=== PATIENT | female | born 1990 | race Caucasian/White ===

== ENCOUNTER 2018-08-07 07:08 | Day surgery (SDC) | payer SELFPAY ==
[2018-08-03 15:52] LABS: Hematocrit 40.3 % (37-47); Hemoglobin 13.4 g/dl (12.0-15.0); Mean Corp Hgb Conc 33.3 g/gl (32-36); Mean Corpuscular Hgb 26.9 pg (27.0-32.0); Mean Corpuscular Volume 80.8 fL (81-99); Mean Platelet Vol. 9.8 fl (6.2-12.0); Platelet Count 335 K/mm3 (150-450); RBC Distribution Width CV 13.5 % (11.6-14.6); RBC Distribution Width SD 38.8 fl (35.1-43.9); Red Blood Count 4.99 M/mm3 (4.2-5.4); White Blood Count 6.8 K/mm3 (4.4-11.0)
[2018-08-03 15:54] LABS: Scan Indicated on CBC? Y/N NO
[2018-08-03 16:48] LABS: hCG Titer Quant., Serum < 1 mIU/mL (<9 non-preg)
--- NOTE | 2018-08-06 14:35 | PCM.HP.BLA ---
History and Physical Date of Admission: 08/07/18 Surgical History and Physical Leny Martin, a 27 year old female 2 0 2 0 2, presents for D and C and hysteroscopy on August 07, 2018 at 8:30. -- EM Polyp; Irregular Menses -- Leny is referred per Dr Grant for a Polyp in the uterus. Pt relates she is a 27yo G 4, P 2 AB 2. She had 2 healthy full term pregnancies followed by 2 SAB's in the past 2yrs. Menses have always been irregular, but have been more irregular recently. She had some labwork and a pelvic U/S done at [facility] last mo, and sts she was advised she has a uterine polyp that could be causing her issues with irregular menses, SAB's, and difficulty conceiving. Polyp in uterus which began found on U/S this mo. Leny claims it started suddenly and has been present constantly. It occurs all the time. It is located in the Uterus. Associated signs and symptoms are 2 SAB's in the past 2yrs. Additional comments are: u/s just after last menses ended showed possible 1 cm EM polyp; had 2 MC's--one at 9 weeks and one blighted ovum; 2 normal pregnancies; trying for for 1.5 year.; Additional comments are: Polyp persists on u/s in our office. MEDICATIONS HISTORY: ALLERGIES: No Known Allergies Infections - Chicken pox childhood Illnesses - no serious past illnesses Accidents - None Hospitalizations - Childbirth and see surgery Review of Systems: GENERAL - Denies fever, or chills SKIN - Denies skin changes EYES - Denies visual changes EARS - Denies difficulty hearing NOSE - Denies nasal congestion or bleeding MOUTH - Denies sore throat or difficulty swallowing NECK - Denies pain or swelling RESPIRATORY - Denies shortness of breath or wheezing CARDIOVASCULAR - Denies palpitations or chest pain GASTROINTESTINAL - Denies nausea, vomiting, diarrhea, constipation GENITOURINARY - Denies dysuria, frequency of urination, incontinence of urine MUSCULOSKELETAL - Denies joint or muscle pain NEUROLOGICAL - Denies localized numbness or weakness PSYCHIATRIC - Denies depression or anxiety ENDOCRINE - Denies heat or cold intolerance, weight loss or gain HEMATO-IMMUNOLOGIC - Denies excesive bleeding with cuts SOCIAL HISTORY: Alcohol Use - denies drinking Smoking - denies smoking Diet - balanced Diet Lifestyle - moderate stress lifestyle and Exercise - minimal Seat Belt Use - always Employer - Unemployed Job Description - Housewife Illicit Drug Use - denies use of street drugs Sexual Activity - Spouse-Sig Other Name - Yogesh Spouse-Sig Other Occupation - [employer] Children Name(s) - Kimberly(11), Tim(14) Control - None-attempting pregancy FAMILY HISTORY: co MENSTRUAL HISTORY: LMP Known?- YesAmount/Duration - 3 days, Regularity - Irregular, LMP - 07/19/18 PAST PREGNANCIES: Total Pregnancies - 4; Full Term Pregnancies - 2; Premature - 0; Abortions, Induced - 0; Abortions, Spontaneous - 2; Ectopics - 0; Multiple Births - 0; Living Children - 2 SURGICAL HISTORY: 1. D and C, 2017 ; Dr. Bridges 2. cholecystectomy, 2015 PHYSICAL EXAM BP- 118/62 Sitting, Right arm, regular cuff Weight- 162.23086 lbs Height- 64 inch BMI:27.87 CONSTITUTIONAL - NAD, well nourished, and well developed SKIN - No rash, lesions, or ulcers HEENT - Normocephalic, PERRLA, EOMI NECK - No nodes, no nuchal rigidity and thyroid normal size and texture LYMPH NODES - Palpation of lymph nodes in neck and groins within normal limits LUNGS - CTA x2 without wheezes, crackles or rales CARDIAC - Regular rate and rhythm without rubs, murmurs, or gallops ABDOMEN - Without hepatosplenomegaly, distention, masses, rebound, or guarding; normal bowel sounds; no hernias EXTREMITIES - No edema or calf tenderness NEUROLOGICAL - Cranial nerves II-XII grossly intact PSYCHIATRIC - A and O to time, place, person, mood and affect ASSESSMENT/PLAN: 1. Mucous Polyp Of Cervix Discussed options for treatment and will proceed with D and C and H/S. Disucssed RBAs and all questions answered.
[2018-08-07 07:26] VITALS: BP 131/77; PULSE 70; RESP 16; TEMP 36.6; O2SAT 100; BMI 28.1
[2018-08-07 07:48] LABS: Internal QC Validated? YES +Cl - CLEAR BKGD; Pregnancy, Urine Negative Negative
--- NOTE | 2018-08-07 08:35 | EMB_PTH ---
PATIENT: SHAYLA GORDON [place] [facility] [place][id number] AGE/SX: 27/F ROOM: RE08/07/[address]: Dr. Saqib Monge MD : 1990 BED: DIS: 08/07/2018 SPEC #: [id number] RECD: 08/07/18 09:39 STATUS: FRANCISCO JAVIER BRYAN #: [id number] TRICIA: 08/07/18 08:[address]: Saqib Monge DEPT: SURGICAL PATHOLOGY RECD BY: Lissette Biggs ENTERED: 08/07/18 11:11 SP TYPE: ENDOM BX/C OTHR DR: Dr. Saqib Grant MD Tissues: Endometrium, NOS Procedures: Surgery Specimen Level IV HEADER OPERATION: Hysteroscopy, dilation and curettage PRE-OP DIAGNOSIS: Mucous polyp of cervix TISSUE SUBMITTED: Endometrial curettings MICROSCOPIC DIAGNOSIS Endometrium, curettings: Transition to secretory endometrium with focal glandular and stromal breakdown. AM:allie 08/08/18 MICROSCOPIC DESCRIPTION Slides are reviewed. GROSS DESCRIPTION Received in fixative is one container labeled with the patient's name and designated endometrial curettings. The specimen consists of multiple fragments of hemorrhagic soft tissue that in aggregate measure 5 x 3 x 0.3 cm. The entire specimen is submitted in two cassettes. / SJ:allie 08/07/18 TC:5 CPT: 78363
--- NOTE | 2018-08-07 08:41 | PCM.OPRPT ---
Report of Operation Date of Procedure: 08/07/18 Pre-Operative Diagnosis: Irregular Menses and Endometrial Polyp Post-Operative Diagnosis: Irregular Menses and Endometrial Polyp Surgery/Procedure Performed:: Hysteroscopy and Dilation and Curettage Description of Surgical Findings:: 8 cm endometrial cavity with 1 cm endometrial polyp present. Type of Anesthesia:: MAC/Supplemental Anesthesiologist: Govind Kumar Specimen's removed: Endometrial curettings including polyp Estimated Blood Loss (mL): Minimal Fluids Replaced: Crystalloid Description of Procedure: Surgeon: Saqib Monge MD, FACOG Indications: This is a 27 year old patient who has the above diagnosis. The patient has been counseled regarding the risk and indications of this procedure including the possibility of bleeding, infection, and injury to surrounding structures such as bowel bladder. All questions were answered and we consider the patient well-informed. Procedure: The patient was taken to the operating room where after IV sedation was given, she was placed in the dorsolithotomy position and prepped and draped in the usual sterile fashion. The bladder was drained of approximately 50 cc of clear yellow urine with a catheter. Anterior cervix was grasped with the tenaculum and dilated to about 4-5 mm. A 3 mm hysteroscope was placed in the uterus of the above findings were noted. Cervix was dilated to about 7-8 mm and uterus was gently curetted removing all contents. Hysteroscope was reinserted and all material was noted to be removed. In the course of the procedure approximately 100 cc of glycine distending media was used and virtually all of this was recovered. Patient tolerated procedure well was taken to recovery room in satisfactory condition sponge instrument and needle counts were all reportedly correct. Estimated blood loss for the case was minimal. Specimens to pathology was endometrial curettings Complications: None Grafts/Implants Used: None - Complications None - Admit VTE Documentation VTE Present on Admission: Yes VTE Mechan Device Prophylaxis: SCD's VTE Pharm Prophylaxis ordered?: No Reason prophylaxis not ordered:: Treatment Not Indicated
--- NOTE | 2018-08-07 08:48 | DCINST_ITS ---
Discharge Diet: No Restrictions Discharge Activity: Return to Normal Activity, May Shower, May Take a Tub Bath May resume sexual activity in: 2 weeks Call your doctor if you observe: Fever of 101 or Higher, Inability to urinate, Inability to have a bowel movement, Using more than one pad per hour Allergies/Adverse Reactions: Allergies No Known Allergies Allergy (Verified 08/02/18 10:27) Medications to take at Discharge NK 08/02/18 Primary Care Physician: Saqib Grant [Primary Care Provider] - Test Results: Test results from this visit will be discussed in further detail at your follow- up appointment, if applicable. Please Follow Up With: Saqib Monge MD When: 2-3 weeks
[2018-08-07 09:24] VITALS: BP 126/82; BP 131/77; PULSE 75; RESP 16; TEMP 36.4; O2SAT 97
[2018-08-07 09:30] VITALS: BP 121/72; BP 131/77; PULSE 72; RESP 16; O2SAT 99
[2018-08-07 09:35] VITALS: BP 110/72; BP 131/77; PULSE 69; RESP 16; O2SAT 98
[2018-08-07 09:36] VITALS: BP 122/77; BP 131/77; PULSE 68; RESP 16; TEMP 36.6; O2SAT 97
[2018-08-07 11:09] VITALS: BP 105/59; BP 131/77; PULSE 67; RESP 18; TEMP 37.1; O2SAT 100
--- OUTSIDE RECORDS SUMMARY | 2018-11-08 17:04 | XMS RPT_ITS ---
:1990 Author Organization OHIP Care Team Providers Name Role Phone MUNA DEANDRE Admitting Unavailable DEANDRE GRANT Attending Unavailable DEANDRE GRANT Primary Care Unavailable DEANDRE GRANT Consulting Unavailable PROVIDER, UNKNOWN Consulting Unavailable PROVIDER, UNKNOWN Consulting Unavailable PROVIDER, UNKNOWN Consulting Unavailable Deandre Monge Attending Unavailable Deandre Monge Referring Unavailable VaccDeandre blanco Primary Care Unavailable PROBLEMS PROBLEMS No Problem Records FoundPROCEDURES PROCEDURES No Procedure Records FoundRESULTS RESULTS OPERATIVE REPORT Observed: 08/07/2018 Status: F Source: HOME 9:15 AM [facility] REPOSITORY [facility] Medical Records Department [address] [place] [address] Operative Report 08/07/18 0841 MR#: [id number] Acct: [id number] Name: LENY GORDON Rep #: [id number] : 1990 27 From: Deandre Monge MD PCP: Deandre Grant MD Status: REG [facility] Y Location: [place] [address] Report of Operation Date of Procedure: 08/07/18 Pre-Operative Diagnosis: Irregular Menses and Endometrial Polyp Post-Operative Diagnosis: Irregular Menses and Endometrial Polyp Surgery/Procedure Performed:: Hysteroscopy and Dilation and Curettage Description of Surgical Findings:: 8 cm endometrial cavity with 1 cm endometrial polyp present. Type of Anesthesia:: MAC/Supplemental Anesthesiologist: Govind Kumar Specimen's removed: Endometrial curettings including polyp Estimated Blood Loss (mL): Minimal Fluids Replaced: Crystalloid Description of Procedure: Surgeon: Deandre Monge MD, FACOG Indications: This is a 27 year old patient who has the above diagnosis. The patient has been counseled regarding the risk and indications of this procedure including the possibility of bleeding, infection, and injury to surrounding structures such as bowel bladder. All questions were answered and we consider the patient well-informed. Procedure: The patient was taken to the operating room where after IV sedation was given, she was placed in the dorsolithotomy position and prepped and draped in the usual sterile fashion. The bladder was drained of approximately 50 cc of clear yellow urine with a catheter. Anterior cervix was grasped with the tenaculum and dilated to about 4-5 mm. A 3 mm hysteroscope was placed in the uterus of the above findings were noted. Cervix was dilated to about 7-8 mm and uterus was gently curetted removing all contents. Hysteroscope was reinserted and all material was noted to be removed. In the course of the procedure approximately 100 cc of glycine distending media was used and virtually all of this was recovered. Patient tolerated procedure well was taken to recovery room in satisfactory condition sponge instrument and needle counts were all reportedly correct. Estimated blood loss for the case was minimal. Specimens to pathology was endometrial curettings Complications: None Grafts/Implants Used: None - Complications None - Admit VTE Documentation VTE Present on Admission: Yes VTE Mechan Device Prophylaxis: SCD's VTE Pharm Prophylaxis ordered?: No Reason prophylaxis not ordered:: Treatment Not Indicated 08/07/18 0915 <Electronically signed by Deandre Monge MD> Date Deandre Monge MD CC: Deandre Grant MD; Deandre Monge MD Signed DISCHARGE INSTRUCTION Observed: 08/07/2018 Status: F Source: HOME 8:48 AM [facility] REPOSITORY [facility] Medical Records Department [address] [place] [address] Instructions for Home/Discharge Instructions 08/07/18 0846 MR#: [id number] Acct: [id number] Name: LENY GORDON Rep #: [id number] : 1990 27 From: Deandre Monge MD PCP: Deandre Grant MD Status: REG [facility] Discharge Diet: No Restrictions Discharge Activity: Return to Normal Activity, May Shower, May Take a Tub Bath May resume sexual activity in: 2 weeks Call your doctor if you observe: Fever of 101 or Higher, Inability to urinate, Inability to have a bowel movement, Using more than one pad per hour Allergies/Adverse Reactions: Allergies No Known Allergies Allergy (Verified 08/02/18 10:27) Medications to take at Discharge NK 08/02/18 Primary Care Physician: Deandre Grant [Primary Care Provider] - Test Results: Test results from this visit will be discussed in further detail at your follow-up appointment, if applicable. Please Follow Up With: Deandre Monge MD When: 2-3 weeks 08/07/18 0848 <Electronically signed by Deandre Monge MD> Date Deandre Monge MD CC: Deandre Grant MD ENDOMETRIAL BX/CURETTINGS Observed: 08/07/2018 Status: F Source: RAKEL 8:35 AM [facility] REPOSITORY Patient: LENY GORDON : 1990 (/) Acct Num: [id number] Phys: Deandre Monge MD Unit Num: [id number] Loc: [facility] Specimen: [id number] Received: 08/07/1839 Spec Type: ENDOM BX/C TISSUES 1 TISSUES: Endometrium, NOS GROSS DESCRIPTION Received in fixative is one container labeled with the patient's name and designated endometrial curettings. The specimen consists of multiple fragments of hemorrhagic soft tissue that in aggregate measure 5 x 3 x 0.3 cm. The entire specimen is submitted in two cassettes. / SJ:allie 08/07/18 TC:5 CPT: 79507 HEADER OPERATION: Hysteroscopy, dilation and curettage PRE-OP DIAGNOSIS: Mucous polyp of cervix TISSUE SUBMITTED: Endometrial curettings MICROSCOPIC DESCRIPTION Slides are reviewed. MICROSCOPIC DIAGNOSIS Endometrium, curettings: Transition to secretory endometrium with focal glandular and stromal breakdown. AM:allie 08/08/18 Signed Raheem Avalos, DO 08/08/18 <signature on file> Performed By: #### PEMB #### [facility] [address] [place], [address] ,URINE Collected: 08/07/2018 Status: F Source: HOME 7:20 AM [facility] REPOSITORY TYPE CODE TESTS RESULT OUT OF REFERENCE UNITS RANGE LAB L400.8000 Negative Normal HCGUQUAL Negative Result Comment: Very dilute urine specimens, as indicated by a low specific gravity, may not contain car sales representative levels of hCG. If is still suspected, a first morning urine specimen should be collected 48 hours later and tested. Performed By: #### L400.7600 #### [facility] [address] [place], [address] HISTORY AND PHYSICAL Observed: 08/06/2018 Status: F Source: HOME EXAM 2:38 PM [facility] REPOSITORY [facility] Medical Records Department [address] [facility] [address] History and Physical 08/06/18 1435 MR#: [id number] Acct: [id number] Name: LENY GORDON Rep #: [id number] : 1990 27 From: Deandre Monge MD PCP: Deandre Grant MD Status: PRE [facility] Y Location: [facility] History and Physical Date of Admission: 08/07/18 Surgical History and Physical Leny Gordon, a 27 year old female 2 0 2 0 2, presents for D and C and hysteroscopy on August 07, 2018 at 8:30. -- EM Polyp; Irregular Menses -- Leny is referred per Dr Grant for a Polyp in the uterus. Pt relates she is a 27yo G 4, P 2 AB 2. She had 2 healthy full term pregnancies followed by 2 SAB's in the past 2yrs. Menses have always been irregular, but have been more irregular recently. She had some labwork and a pelvic U/S done at [facility] last mo, and sts she was advised she has a uterine polyp that could be causing her issues with irregular menses, SAB's, and difficulty conceiving. Polyp in uterus which began found on U/S this mo. Lney claims it started suddenly and has been present constantly. It occurs all the time. It is located in the Uterus. Associated signs and symptoms are 2 SAB's in the past 2yrs. Additional comments are: u/s just after last menses ended showed possible 1 cm EM polyp; had 2 MC's--one at 9 weeks and one blighted ovum; 2 normal pregnancies; trying for for 1.5 year.; Additional comments are: Polyp persists on u/s in our office. MEDICATIONS HISTORY: ALLERGIES: No Known Allergies Infections - Chicken pox childhood Illnesses - no serious past illnesses Accidents - None Hospitalizations - Childbirth and see surgery Review of Systems: GENERAL - Denies fever, or chills SKIN - Denies skin changes EYES - Denies visual changes EARS - Denies difficulty hearing NOSE - Denies nasal congestion or bleeding MOUTH - Denies sore throat or difficulty swallowing NECK - Denies pain or swelling RESPIRATORY - Denies shortness of breath or wheezing CARDIOVASCULAR - Denies palpitations or chest pain GASTROINTESTINAL - Denies nausea, vomiting, diarrhea, constipation GENITOURINARY - Denies dysuria, frequency of urination, incontinence of urine MUSCULOSKELETAL - Denies joint or muscle pain NEUROLOGICAL - Denies localized numbness or weakness PSYCHIATRIC - Denies depression or anxiety ENDOCRINE - Denies heat or cold intolerance, weight loss or gain HEMATO-IMMUNOLOGIC - Denies excesive bleeding with cuts SOCIAL HISTORY: Alcohol Use - denies drinking Smoking - denies smoking Diet - balanced Diet Lifestyle - moderate stress lifestyle and Exercise - minimal Seat Belt Use - always Employer - Unemployed Job Description - Housewife Illicit Drug Use - denies use of street drugs Sexual Activity - Spouse-Sig Other Name - Yogesh Spouse-Sig Other Occupation - [employer] Children Name(s) - Kimberly(11), Tim(14) Control - None-attempting pregancy FAMILY HISTORY: nc MENSTRUAL HISTORY: LMP Known?- YesAmount/Duration - 3 days, Regularity - Irregular, LMP - 07/19/18 PAST PREGNANCIES: Total Pregnancies - 4; Full Term Pregnancies - 2; Premature - 0; Abortions, Induced - 0; Abortions, Spontaneous - 2; Ectopics - 0; Multiple Births - 0; Living Children - 2 SURGICAL HISTORY: 1. D and C, 2017 ; Dr. Bridges 2. cholecystectomy, 2016 PHYSICAL EXAM BP- 118/62 Sitting, Right arm, regular cuff Weight- 162.91025 lbs Height- 64 inch BMI:27.87 CONSTITUTIONAL - NAD, well nourished, and well developed SKIN - No rash, lesions, or ulcers HEENT - Normocephalic, PERRLA, EOMI NECK - No nodes, no nuchal rigidity and thyroid normal size and texture LYMPH NODES - Palpation of lymph nodes in neck and groins within normal limits LUNGS - CTA x2 without wheezes, crackles or rales CARDIAC - Regular rate and rhythm without rubs, murmurs, or gallops ABDOMEN - Without hepatosplenomegaly, distention, masses, rebound, or guarding; normal bowel sounds; no hernias EXTREMITIES - No edema or calf tenderness NEUROLOGICAL - Cranial nerves II-XII grossly intact PSYCHIATRIC - A and O to time, place, person, mood and affect ASSESSMENT/PLAN: 1. Mucous Polyp Of Cervix Discussed options for treatment and will proceed with D and C and H/S. Disucssed RBAs and all questions answered. 08/06/18 1438 <Electronically signed by Deandre Monge MD> Date Deandre Monge MD Cosigner Signature: Date (if applicable) CC: Deandre Grant MD; Deandre Monge MD Signed CBC-COMPLETE BLOOD CNT Collected: 08/03/2018 Status: F Source: RAKEL NO DIFF 1:15 PM [facility] REPOSITORY TYPE CODE TESTS RESULT OUT OF RANGE REFERENCE UNITS LAB L100.1000 4.4-11.0 K/mm3 Normal WBC 6.8 LAB L100.1200 4.2-5.4 M/mm3 Normal RBC 4.99 LAB L100.1300 12.0-15.0 g/dl Normal HGB 13.4 LAB L100.1400 37-47 % Normal HCT 40.3 LAB L100.1500 81-99 fL Low MCV 80.8 LAB L100.1600 27.0-32.0 pg Low MCH 26.9 LAB L100.1700 32-36 g/gl Normal MCHC 33.3 LAB L100.1810 11.6-14.6 % Normal RDW CV 13.5 LAB L100.1820 35.1-43.9 fl Normal RDW SD 38.8 LAB L100.1900 150-450 K/mm3 Normal PLT 335 LAB L100.2000 6.2-12.0 fl Normal MPV 9.8 Performed By: #### L100.0500 #### [facility] [address] [place], [address] HCG TITER QUANT., Collected: 08/03/2018 Status: F Source: HOME SERUM 1:15 PM [facility] REPOSITORY TYPE CODE TESTS RESULT OUT OF RANGE REFERENCE UNITS LAB L700.8000 <9 non-preg mIU/mL Normal HCG < 1 QUANT. Performed By: #### L700.8000 #### [facility] [address] [place], [address] TYPE AND SCREEN Collected: 08/03/2018 Status: F Source: HOME 1:15 PM [facility] REPOSITORY Order Comment: Surgery Date: 08/07/18 Hx of Preganancy in last 3 Months No Ever experience any problems with transfusion(s)? N Hx of Transfusion in last 3 Months N Reason for Type AND Screen/Red Cells: SURGERY SURGICAL PROCEDURE: 92122 TYPE CODE TESTS RESULT OUT OF RANGE REFERENCE UNITS LAB B10.0800 O Normal BLOOD TYPE GEL NEGATIVE LAB B100.4000 Normal Antibody NEGATIVE Screen Performed By: #### B101.7475 #### [facility] [address] [facility] [place], [place], [address] US PELVIC Observed: 06/22/2018 Status: F Source: BLAISE YIN 4:[address] [address] Patient: LENY GORDON Phone#: : 1990 Age: 27 Gender: F Pt. Type: Out Account: [id number] Location: 052 Ordering: DEANDRE GRANT Exam Date: 06/22/2018/15:36 Family Phys: Charge Code: [id number] Physician: [place] Order #: [id number] DLP Dose#: PROCEDURE: PELVIC ULTRASOUND, TRANSABDOMINAL ENDOVAGINAL COMPARISON: None. INDICATIONS: Irregular periods TECHNIQUE: Pelvic ultrasound using transabdominal and endovaginal technique. FINDINGS: UTERUS: Size is 9.0 x 5.2 x 6.0 cm with unremarkable appearance. Endometrial thickness is 8 mm. There is a small cyst in the endometrium measuring 0.2 cm with surrounding echogenic material 1.0 x 0.6 x 0.6 cm, this appearance is highly suggestive of a endometrial polyp. Focal echogenicity within the myometrium without shadowing. May represent a small calcification. ADNEXAE: Normal bilateral appearance with no significant masses. Right ovary is 3.6 x 2.7 x 2.4 cm. Left ovary is 3.7 x 2.1 x 2.1 cm. there are follicles in both ovaries. CUL-DE-SAC: Normal. No fluid or mass. OTHER: Negative. CONCLUSION: 1. Probable endometrial polyp, though the differential also includes focal endometrial hyperplasia or polypoid adenomyoma. Consider correlation with transvaginal sonogram. Dictated by: Mei Emmanuel MD on 06/22/2018 at 17:13 Approved by: Mei Emmanuel MD on 06/22/2018 at 17:13 US PELVIC ENDO Observed: 06/22/2018 Status: F Source: BLAISEABEBA YIN VAGINAL 4:07 PM [place] [address] Patient: LENY GORDON Phone#: : 1990 Age: 27 Gender: F Pt. Type: Out Account: [id number] Location: 052 Ordering: DEANDRE GRANT Exam Date: 06/22/2018/15:36 Family Phys: Charge Code: [id number] Physician: [place] Order #: [id number] DLP Dose#: PROCEDURE: PELVIC ULTRASOUND, TRANSABDOMINAL ENDOVAGINAL COMPARISON: None. INDICATIONS: Irregular periods TECHNIQUE: Pelvic ultrasound using transabdominal and endovaginal technique. FINDINGS: UTERUS: Size is 9.0 x 5.2 x 6.0 cm with unremarkable appearance. Endometrial thickness is 8 mm. There is a small cyst in the endometrium measuring 0.2 cm with surrounding echogenic material 1.0 x 0.6 x 0.6 cm, this appearance is highly suggestive of a endometrial polyp. Focal echogenicity within the myometrium without shadowing. May represent a small calcification. ADNEXAE: Normal bilateral appearance with no significant masses. Right ovary is 3.6 x 2.7 x 2.4 cm. Left ovary is 3.7 x 2.1 x 2.1 cm. there are follicles in both ovaries. CUL-DE-SAC: Normal. No fluid or mass. OTHER: Negative. CONCLUSION: 1. Probable endometrial polyp, though the differential also includes focal endometrial hyperplasia or polypoid adenomyoma. Consider correlation with transvaginal sonogram. Dictated by: Mei Emmanuel MD on 06/22/2018 at 17:13 Approved by: Mei Emmanuel MD on 06/22/2018 at 17:13 ALLERGIES ALLERGIES DATE TYPE / CODE NAME / CODE REACTION SEVERITY SOURCE 08/02/2018 Drug No Known Unknown [place] Allergy/[id number](S Allergies/F0019 [facility] NOMED CT) [address]89(RXNORM) Hospital Repository Miscellaneous No Known Moderate Blaise Pomerene Allergy/[id number](S Allergies (Severity [facility] NOMED CT) Modifier) [facility] (Qualifier Repository Value) ENCOUNTERS ENCOUNTERS ADMIT/DISCHARGE ACCOUNT ADMITTING ENCOUNTER LOCATION SOURCE NUMBER CLASS 08/07/2018/ [id number] Ambulatory Rakel [facility] [address] [place] [address] ing:SDCRoom: Repository AC19 06/22/2018/ [id number] VACCARIELLO, Ambulatory Blaise Pomerene 8 [facility] Repository PAYERS PAYERS ENCOUNTER GUARANTOR PAYER SUBSCRIBER SOURCE 08/07/2018 LENY Fox Primary Insurance:[facility] LENY [place] [id number] TR PACKAGE PLANPolicy RALSTONDOB: [address] Number: [id number] [facility] [address]Cgv: [id number] Repository Date:2018-08-01 () 08/07/2018 Secondary NOT GIVENUNK Rakel Insurance:SELF PAY [facility] Number: Effective Repository Date:2018-08-01 06/22/2018 LENY P Primary LENY NDIAYEB: Insurance:RADIOLOGY RALSTONDOB: [facility] [id number] PACKAGEPolicy Number: [id number] [facility] TR Effective Date: 9 TR Repository [address] [place] [id number]: [place] [id number] ()
== END 2018-08-07 11:33 | disposition home or self-care (01) ==
LOC: SDC 07:10 → AC 07:14
PROVIDERS: Anesthesiology; Family Provider Family Medicine; PCP Family Medicine; Referring Provider Obstetrics & Gynecology; Visit Provider Obstetrics & Gynecology
PROC: 0UDB8ZZ Extraction of Endometrium, Via Natural or Artificial Opening Endoscopic (ICD-10-PCS; CPT 58558; principal; 2018-08-07 08:25)
DX: N92.6 Irregular menstruation, unspecified (principal); N84.1 Polyp of cervix uteri
CPT/HCPCS: 00952; 58558; 36415; 81025; 84702; 85027; 86850; 86900; 88305; J7120; J2405